=== PATIENT | female | born 1970 | race Caucasian/White ===

== ENCOUNTER 2020-06-07 09:07 | Emergency (ER) | payer OTHER, SELFPAY ==
--- NOTE | ~2020-06-07 | XR_ITS ---
EXAMINATION: XR ankle LT min 3V DATE: 06/07/2020 09:38 INDICATION: Left ankle pain which worsens with weightbearing TECHNIQUE: Anteroposterior, oblique, mortise, and lateral views of the left ankle were obtained. COMPARISON: Left foot radiographs dated 03/29/2011 FINDINGS: Bone alignment is normal. No fracture. Again seen are postoperative changes of a prior attempted talo navicular arthrodesis with unchanged lucency surrounding 2 lag screws one of which is fractured dista lly consistent with loosening. The talonavicular joint line appears to remain unfused with mild nonun iform joint space narrowing and small dorsal marginal osteophytes consistent with mild osteoarthritis . Remaining joint spaces are relatively preserved. Moderate-sized Achilles and plantar calcaneal spur s. No significant interval change in a heterotopic ossicle along the dorsal/medial margin of the talo navicular joint space. Soft tissues are unremarkable. No ankle joint effusion. IMPRESSION: 1. 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 2. Moderate-sized Achilles and plantar calcaneal spurs. Reviewed, dictated and finalized at location B. IMPRESSION: 1. Mild osteoarthritis with chronic failed arthrodesis at the left talonavicula r joint. 2. Moderate-sized Achilles and plantar calcaneal spurs.
--- NOTE | 2020-06-07 09:22 | ED.LOWEXIN ---
HPI - Extremity Injury (Lower) General Chief Complaint: Extremity Injury, Lower Stated Complaint: FOOT PAIN Time Seen by Provider: 06/07/20 09:22 Source: patient Mode of arrival: ambulatory Limitations: no limitations History of Present Illness HPI Narrative: 50-year-old woman with a history of prior left foot surgery for tumor comes in today complaining of pain in her left ankle that started this morning after she arose. She states that dorsiflexion, plantar flexion, and medial and lateral rotation of the distal foot are what causes the most pain. She does have some pain with weight-bearing. He states the pain she has today is different than the occasional episodes in which her foot hurts but then the pain is alleviated by immobilization and rest. She denies personal or family history of gout complaint: foot injury Onset (ago): hour(s) (3) Injury: Left: foot Type of Injury: unknown Severity: severe Relieving factors: rest Exacerbating factors: weight bearing, movement and palpation Associated symptoms: able to partially bear weight Treatments prior to arrival: splint ( walking boot) Related Data Home Medications Medication Instructions Recorded Confirmed hydrocodone-acetaminophen 1 tablet PO QID 06/07/20 06/07/20 losartan 100 mg PO DAILY 06/07/20 06/07/20 metoprolol succinate 100 mg PO DAILY 06/07/20 06/07/20 valacyclovir 500 mg PO DAILY 06/07/20 06/07/20 Allergies Allergy/AdvReac Type Severity Reaction Status Date / Time No Known Allergies Allergy Mild Verified 03/29/11 13:28 Review of Systems Musculoskeletal: Musculoskeletal: Reports arthralgias and Denies joint swelling Integumentary/Breasts: Skin/Breast: Denies pruritus, Denies rash and Denies skin ulcer PMFSH Past Medical History Medical History Chronic back pain Hypertension Surgical History Surgical History Hx of foot surgery Family History Family History (Updated 11/28/16 @ 23:56 by DOCTOR UNKNOWN) Father Hypertension Malignant neoplasm of prostate, Onset Age: 62 Family history of diabetes mellitus in first degree relative Patient's father is Family history of type 2 diabetes mellitus Mother Patient's mother is in good health Sibling Patient's sister is in good health Patient's brother is in good health Social History Social History Smoking status: Heavy tobacco smoker Alcohol intake: current Exam Const: General: healthy appearing and alert Orientation/consciousness: patient oriented x3 Limitations: no limitations Other: [id number] acute distress. Resp: Effort & Inspection: normal respiratory effort and not labored Auscultation: clear to auscultation bilaterally, no rales, no rhonchi and no wheezes Cardio: Rate: regular rate Rhythm: regular rhythm Heart sounds: no murmurs Skin: General skin exam: normal color, no jaundice and no pallor Rashes: no rashes Neuro: General: patient oriented x3, moves all extremities, no focal motor deficits and CN's II-XI intact bilaterally Speech: normal speech Extrem: General: normal to inspection and no clubbing, cyanosis or edema Other: Tenderness palpation distal to the medial malleolus of the left ankle. There may be some mild joint swelling. There is no tenderness over the left midfoot , malleoli, metatarsals, digits, or calcaneus. Normal contours. Psych: Appearance: grossly normal and well kempt Mental Status: mental status grossly normal Affect: normal affect Attitude: cooperative Thought content: Yes Normal thought content present MDM - Extremity Injury (Lower) Differential Diagnosis Differential diagnosis: Likely ankle sprain and strain and ankle fracture Imaging Data Radiologist's impression: ITS Impressions Ankle X-Ray 06/07/20 09:40 IMPRESSION: 1. Mild osteoarthritis
[2020-06-07 09:26] VITALS: BP 147/90; PULSE 97; RESP 18; TEMP 36.9; O2SAT 98
[2020-06-07 09:57] VITALS: BP 150/97; PULSE 75; RESP 18; O2SAT 98
== END 2020-06-07 10:01 | disposition home or self-care (01) ==
PROVIDERS: Emergency Provider Emergency Medicine; PCP Physician Assistant
DX: M25.572 Pain in left ankle and joints of left foot (principal)
CPT/HCPCS: 73610; 99282; 99283

== ENCOUNTER 2020-11-25 12:18 | Emergency (ER) | payer OTHER, SELFPAY ==
--- NOTE | 2020-11-25 12:26 | ED.GENADULT ---
HPI - General Adult General Chief complaint: Wound/Laceration Stated complaint: cut left hand Source: patient Mode of arrival: ambulatory Limitations: no limitations History of Present Illness HPI narrative: Bailey is a 50F with a PMH of HTN and chronic back pain that presented to the ED after she sliced her ------ finger with a knife while preparing food. She has no other injuries or concerns. Her tetanus is up to date. Related Data Home Medications Medication Instructions Recorded Confirmed losartan 100 mg PO DAILY 06/07/20 06/07/20 metoprolol succinate 100 mg PO DAILY 06/07/20 06/07/20 valacyclovir 500 mg PO DAILY 06/07/20 06/07/20 atorvastatin [Lipitor] 10 mg PO DAILY 11/25/20 11/25/20 Allergies Allergy/AdvReac Type Severity Reaction Status Date / Time No Known Allergies Allergy Mild Verified 11/25/20 12:41 Review of Systems Constitutional: Constitutional: Reports no additional constitutional complaints Eyes: Eyes: Reports no additional eye complaints ENT: Reports system reviewed and no additional complaints, except as documented Cardiovascular: Cardiovascular: Reports no additional cardiovascular complaints Respiratory: Respiratory: Reports no additional respiratory complaints Gastrointestinal: Gastrointestinal: Reports no additional gastrointestinal complaints Genitourinary: Genitourinary: Reports no additional female genitourinary complaints Musculoskeletal: Musculoskeletal: Reports no additional musculoskeletal complaints Integumentary/Breasts: Skin/Breast: Reports as per HPI Neurologic: Reports system reviewed and no additional complaints, except as documented Psychiatric: Psychiatric: Reports no additional psychiatric complaints Endocrine: Endocrine: Reports no additional endocrine complaints Hematologic/Lymphatic: Hematologic/Lymphatic: Reports no additional hematologic/lymphatic complaints Allergic/Immunologic: Allergic/Immunologic: Reports no additional allergic/immunologic complaints [facility] Past Medical History Medical History Chronic back pain Hypertension Surgical History Surgical History Hx of foot surgery Family History Family History Father Hypertension Malignant neoplasm of prostate, Onset Age: 62 Family history of diabetes mellitus in first degree relative Patient's father is Family history of type 2 diabetes mellitus Mother Patient's mother is in good health Sibling Patient's sister is in good health Patient's brother is in good health Social History Social History Smoking status: Heavy tobacco smoker Alcohol intake: current Gender identity (if verbalized by the patient): Female Exam Const: General: no acute distress and alert Orientation/consciousness: patient oriented x3 Limitations: No altered mental status HENMT: Head: normal to inspection Other: atrauamtic Eyes: Pupils: Equal, round and reactive pupils present Neck: Neck: normal visual inspection Chest: Chest palpation & inspection: normal inspection of the chest Resp: Effort & Inspection: normal respiratory effort, not labored and not tachypneic Cardio: Rate: regular rate Skin: General skin exam: normal color Rashes: no rashes Neuro: General: patient oriented x3 and moves all extremities Extrem: General: normal to inspection Psych: Mental Status: mental status grossly normal Affect: normal affect Course Course Emergency Course: Bailey was evaluated and the wound was cleaned and repaired as above. Vital Signs Vital signs: Vital Signs Temperature 98.1 F 11/25/20 12:34 Pulse Rate 86 11/25/20 12:34 Respiratory Rate 20 11/25/20 12:34 Blood Pressure 182/122 H 11/25/20 12:34 Pulse Oximetry 96 11/25/20 12:34 Temperature 98.1
[2020-11-25 12:34] VITALS: BP 182/122; PULSE 86; RESP 20; TEMP 36.7; O2SAT 96
[2020-11-25 12:59] VITALS: BP 156/87; PULSE 79; RESP 20; TEMP 36.7; O2SAT 97
== END 2020-11-25 13:01 | disposition home or self-care (01) ==
PROVIDERS: Emergency Provider Family Medicine
DX: S61.217A Laceration without foreign body of left little finger without damage to nail, initial encounter (principal); W26.0XXA Contact with knife, initial encounter
CPT/HCPCS: 12001; 99282